=== PATIENT | female | born 1960 | race African-American/Black ===

== ENCOUNTER 2024-07-15 09:22 | Emergency (ER) | payer MEDICARE ==
[~2024-07-15] VITALS: Ht 172.7 cm; Wt 116.6 kg
[2024-07-15 09:27] VITALS: BP_SYST 199; PULSE 77; RESP 16; TEMP 97.8; O2SAT 97
[2024-07-15 10:01] LABS: BILIRUBIN,URINE NEGATIVE (NEGATIVE); CLARITY/URINE CLEAR (CLEAR); COLOR,URINE ORANGE (YELLOW); GLUCOSE,URINE NEGATIVE (NEGATIVE); KETONES,URINE NEGATIVE (NEGATIVE); LEUKOCYTE ESTERASE ,URINE NEGATIVE (NEGATIVE); NITRITE, URINE NEGATIVE (NEGATIVE); PROTEIN URINE NEGATIVE (NEGATIVE); UROBILINOGEN,URINE 0.2 (0.2-1.0)
[2024-07-15 10:06] LABS: BASOPHILS % (AUTO) 0.4 % (0.0-2.0); EOSINOPHILS % (AUTO) 0.6 % (0.0-4.0); HEMATOCRIT 36.9 % (36-48); HEMOGLOBIN 12.2 g/dL (12.0-16.0); LYMPHOCYTES # (AUTO) 2.3 K/uL (1.0-5.5); LYMPHOCYTES % (AUTO) 37.5 % (20.5-51.5); MEAN CORPUSCULAR HEMOGLOBIN 30 pg (27-31); MEAN CORPUSCULAR HGB CONC 33 % (32-36); MEAN CORPUSCULAR VOLUME 90 fL (79.0-98.0); MONOCYTES # (AUTO) 0.3 K/uL (0.0-1.0); MONOCYTES % (AUTO) 5.4 % (1.7-9.3); NEUTROPHILS # (AUTO) 3.4 K/uL (1.8-7.7); NEUTROPHILS % (AUTO) 56.1 % (40.0-70.0); PLATELET COUNT (AUTO) 223 K/uL (130-430); RED BLOOD CELL COUNT(AUTO) 4.09 MIL/uL (4.2-6.2); RED CELL DISTRIBUTION WIDTH 14.5 % (9.0-15.0)
[2024-07-15 10:16] LABS: BLOOD, URINE TRACE (NEGATIVE)
[2024-07-15 10:19] LABS: INR 1.2 (0.8-1.2); PROTHROMBIN TIME 12.4 SECS (9.5-12.5)
[2024-07-15 10:32] LABS: CREATININE 1.08 mg/dL (0.55-1.30); POTASSIUM 3.5 mmol/L (3.5-5.1)
[2024-07-15 10:44] LABS: BACTERIA,URINE RARE /HPF (None Seen); WBC,URINE NONE SEEN /HPF (0-3)
[2024-07-15] MEDS: MORPHINE 4 MG INJ. 4 MG/ML VIAL IM ONE (11:44)
[2024-07-15 11:48] VITALS: BP_SYST 199; PULSE 77; RESP 16; TEMP 97.8; O2SAT 97
== END 2024-07-15 11:46 | disposition home or self-care (01) ==
LOC: SED 09:22
DX: R10.2 Pelvic and perineal pain (principal); Z88.5 Allergy status to narcotic agent; Z88.8 Allergy status to other drugs, medicaments and biological substances
CPT/HCPCS: 99285; 74176; 80048; 81001; 85025; 85610; 85730; 36415; 96372; 83605; 82397; J2270; 81000; 81015